=== PATIENT | male | born 1980 | race Two or more races ===

== ENCOUNTER 2021-08-18 08:13 | Emergency (ER) | payer OTHER ==
[~2021-08-18] VITALS: Ht 180.3 cm; Wt 59.0 kg
[2021-08-18] MEDS ORDERED: LEVSIN/SL0.125 MG SL (14:29)
[2021-08-18] MEDS ORDERED: PEPCID AC20 MG PO (14:29)
[2021-08-18] MEDS ORDERED: INTESTINEX680 M1 PO (14:29)
[2021-08-18] MEDS ORDERED: KETO10TA2 PO (15:48)
== END 2021-08-18 16:11 | disposition home or self-care (01) ==
LOC: ER 08:13
DX: R10.84 Generalized abdominal pain (principal)